=== PATIENT | female | born 1970 | race Caucasian/White ===

== ENCOUNTER 2017-10-29 10:44 | Day surgery (SDC) | payer OTHER ==
[~2017-10-29] VITALS: Ht 160 cm; Wt 59.0 kg
[2017-10-29 11:57] VITALS: BP 155/92; PULSE 82; RESP 16
[2017-10-29 11:59] VITALS: Ht 160 cm; Wt 59.0 kg
[2017-10-29] MEDS ORDERED: HYDR12.58 PO (12:06)
[2017-10-29] MEDS ORDERED: BUPIVACAINE 0.25% (MPF) 30 ML INJ ONE (12:50)
[2017-10-29] MEDS ORDERED: PROCHLORPERAZINE 10 MG INJ IV PRN (13:00)
[2017-10-29] MEDS ORDERED: ONDANSETRON 4 MG INJ IV PRN (13:00)
[2017-10-29] MEDS ORDERED: MEPERIDINE 25 MG INJ IV PRN (13:00)
[2017-10-29] MEDS ORDERED: DIPHENHYDRAMINE 50 MG INJ IV PRN (13:00)
[2017-10-29] MEDS ORDERED: FENTAnyl 50 MCG/ML VIAL IV PRN (13:00)
[2017-10-29] MEDS ORDERED: OXYCODONE/ACETAMINOPHEN (5/325) TAB PO PRN (13:00)
[2017-10-29] MEDS ORDERED: hydrALAzine 20 MG INJ IV PRN (13:00)
[2017-10-29] MEDS ORDERED: LABETALOL HCL 20MG INJ IV PRN (13:00)
[2017-10-29] MEDS ORDERED: FENTAnyl 50 MCG/ML VIAL ONE (13:06)
[2017-10-29] MEDS ORDERED: SUCCINYLCHOLINE CHLORIDE 100 MG/5 ML SYG IV ONE (13:06)
[2017-10-29] MEDS ORDERED: MIDAZOLAM 1 MG/ML 2 ML INJ ONE (13:06)
[2017-10-29] MEDS ORDERED: PROPOFOL 20 ML ONE (13:06)
[2017-10-29] MEDS ORDERED: LIDOCAINE 2% (SDV) 5 ML INJ ONE (13:06)
[2017-10-29] MEDS ORDERED: ROCURONIUM 50 MG INJ ONE (13:06)
[2017-10-29] MEDS ORDERED: CEFAZOLIN 1 GM INJ ONE (13:20)
[2017-10-29] MEDS ORDERED: DEXAMETHASONE 4 MG/ML 1 ML INJ ONE (13:21)
[2017-10-29] MEDS ORDERED: ONDANSETRON 4 MG INJ ONE (13:21)
[2017-10-29] MEDS ORDERED: FAMOTIDINE 20 MG INJ ONE (13:21)
[2017-10-29] MEDS ORDERED: EPHEDrine SULFATE 50 MG/5 ML SYG ONE (13:22)
[2017-10-29] MEDS ORDERED: SUGAMMADEX SODIUM 200 MG/2 ML VIAL IV ONE (13:54)
[2017-10-29] MEDS ORDERED: KETOROLAC 30 MG INJ ONE (13:56)
[2017-10-29 14:17] VITALS: BP 135/77; PULSE 84; RESP 18
--- NOTE | 2017-10-29 14:19 | OPR ---
Date/Time of Note Date/Time of Note DATE: 10/29/17 TIME: 14:16 Operative Report Procedure Date: Oct 29, 2017 Preoperative Diagnosis symptomatic gallstones Postoperative Diagnosis same Operation/Procedure Performed 1. laparoscopic cholecystectomy 2. therapeutic injection of subcutaneous local anesthesia Surgeon see signature line Cable Puller none Anesthesia Type: general Estimated Blood Loss: 10 - 50 ml's Transfusion none Specimen gallbladder Grafts/Implants none Complications none Pt Condition Post Procedure: stable Indications This is a 46-year-old female with symptomatic gallstones. She requests surgical excision. Risks alternatives benefits and percent were discussed the patient. Patient expressed understanding consents to the operation. Procedure Description Patient is taken to the OR and prepped and draped in usual sterile fashion. Surgical timeout was performed. IV antibiotics given. Infraumbilical incision is made with a 15 blade transversely. Dissection Carrs carried onto the fascia. The fascia was grasped with Edwardo's and divided with curved Parmar scissors. 0 Vicryl U stitch was placed into the fascia. Blueness on trocar is introduced. Pneumoperitoneum is established. Midepigastric 12 mm optical trocar was placed under direct visualization. Right upper quadrant upper flank 5 mm optical trochars were placed under direct visualization. Upon initial inspection there is some adhesions to the gallbladder. The gallbladder was grasped and retracted in a lateral our direction. Careful dissection was performed laterally to mobilize the gallbladder and allowed careful dissection the cystic duct as the gallbladder was intrahepatic. The critical view was established. The cystic duct was thickened with a lot of inflammatory tissue this was divided with a 35 mm echelon vascular stapler. The staple line was divided with 35 mm echelon vascular stapler. The staple line was then reinforced with clips. The cystic artery was divided with 3 clips proximal and clip distal. The gallbladder was taken off the gallbladder bed. There is good hemostasis. The gallbladder was retrieved using Endo Catch bag. Ports removed under direct visualization. 0 Vicryl U stitch was tied down. Skin was closed using absorbable skin stapler and interrupted and running 4-0 Monocryl. Therapeutic subcutaneous local anesthesia was injected throughout the incision site. Dry dressings were applied. Jose Angel ALEJANDRE Oct 29, 2017 14:19
[2017-10-29] MEDS: HYDROmorphONE (0.2 MG/ML) 10ML SYG IV PRN ×2 (14:20→14:35)
[2017-10-29 14:26] VITALS: BP 119/75; PULSE 54; RESP 37
[2017-10-29] MEDS ORDERED: HYDROCODONE/APAP (5/325) TAB PO ONE (14:30)
[2017-10-29 14:46] VITALS: BP 122/67; PULSE 54; RESP 36
[2017-10-29 15:06] VITALS: BP 118/71; PULSE 56; RESP 37
[2017-10-29 15:33] VITALS: BP 117/63; PULSE 65; RESP 19
== END 2017-10-29 15:59 | disposition home or self-care (01) ==
LOC: SDS 10:44
PROVIDERS: ATTEND Surgery
DX: K80.10 Calculus of gallbladder with chronic cholecystitis without obstruction (principal); I10 Essential (primary) hypertension
CPT/HCPCS: 47562; 84703; 88304; J0690; J1100; J1170; J1885; J2175; J2250; J2405; J3010; Z7512; Z7610

== ENCOUNTER 2017-12-10 16:55 | Day surgery (SDC) | END 2017-12-10 21:16 | disposition home or self-care (01) ==